=== PATIENT | female | born 1935 | race African-American/Black ===

== ENCOUNTER 2021-10-01 20:35 | Inpatient (IN) | payer MEDICARE, MEDICAID ==
[2021-10-01 21:01] LABS: #Eosinphils 1.3 10x3/uL (0.0-0.5); #Monocytes 0.8 10x3/uL (0.0-1.1); #Neutrophils 8.9 10x3/uL (1.5-8.4); %Basophils 0.3 % (0.0-2.0); %Eosinophils 10.2 % (0.0-6.0); %Lymphocytes 13.5 % (18.0-47.0); Hemoglobin 11.1 g/dL (12.0-15.5); Mean Corpuscular HGB CONC 29.9 g/dL (32.0-36.0); Mean Corpuscular Hemoglobin 27.3 pg (27.0-33.0); Mean Corpuscular Volume 91.2 fl (81.6-98.3); Mean Platelet Volume 11.2 fl (7.4-10.4); Platelet Count 401 10x3/uL (150-450); RBC Distribution Width 15.9 % (11.5-14.5); Red Blood Cell (RBC) Count 4.07 10x6/uL (3.90-5.03); White Blood Cell (WBC) Count 12.9 10x3/uL (3.5-10.5)
[2021-10-01 21:17] LABS: ALT (SGPT) 59 U/L (8-55); AST (SGOT) 35 U/L (5-34); Alkaline Phosphatase 49 U/L (40-110); Anion Gap 18 mmol/L (10-20); BUN (Urea Nitrogen) 44 mg/dL (9.8-20.1); Calc. Creatinine Clearance 0 mL/min (70-130); Calcium 9.4 mg/dL (7.8-10.44); Carbon Dioxide 26 mmol/L (23-31); Chloride 116 mmol/L (98-107); Globulin 3.5 g/dL (2.4-3.5); Glucose 123 mg/dL (83-110); Potassium 4.2 mmol/L (3.5-5.1); Protein, Total 6.5 g/dL (5.8-8.1); Sodium 156 mmol/L (136-145)
[2021-10-01] MEDS ORDERED: Acetaminophen 650 MG Suppository ONE (21:20)
[2021-10-01 21:26] LABS: Hypochromia SLIGHT = 6-15 cells (100X) (0-5/hpf)
[2021-10-01 21:27] LABS: Platelet Morphology Comment Appears Adequate
[2021-10-01 21:36] LABS: Bilirubin Neg (Negative); Blood, Urine 150 (Negative); Clarity Clear (Clear); Glucose, Urine (Dipstick) Normal (Negative); Ketone, Urine Negative (Negative); Leukocyte 25 (Negative); Nitrite Negative (Negative); Protein, Urine (Dipstick) 30 mg/dl (Neg-Trace)
[2021-10-01] MEDS ORDERED: Cefepime 2 GM VIAL ONE (21:36)
[2021-10-01 21:40] LABS: CKMB 0.9 ng/mL (0-6.6)
[2021-10-01 21:45] LABS: WBC/HPF 0-3 HPF (0-3)
[2021-10-01 21:46] LABS: Bacteria/HPF 4+ HPF (None Seen); Mucous/LPF 1+ LPF (<2+)
[2021-10-01] MEDS ORDERED: Calcium Carbonate 500 MG ChewTAB PO PRN (22:39)
[2021-10-01] MEDS ORDERED: Ondansetron PF 4 MG/2 ML Vial IVP PRN (22:39)
[2021-10-01] MEDS ORDERED: Senokot S 8.6-50 MG TAB PO PRN (22:39)
[2021-10-01] MEDS ORDERED: Guaifenesin DM 100-10/5 ML UDCUP PO PRN (22:39)
[2021-10-01] MEDS ORDERED: D5 1/4 NS 1,000 ML IV SCH (22:45)
[2021-10-01] MEDS ORDERED: Vancomycin 1 GM in Premix Bag 1 BAG IVPB PRN (23:00)
[2021-10-01 23:54] LABS: Lactic Acid 4.5 mmol/L (0.5-2.2)
[2021-10-02] MEDS ORDERED: Albumin 25% 100 ML ONE (00:42)
[2021-10-02 02:29] LABS: SARS-CoV-2 NAA Rapid Test Not Detected (NotDetected)
[2021-10-02 05:12] LABS: Hemoglobin 9.9 g/dL (12.0-15.5); Mean Corpuscular HGB CONC 28.9 g/dL (32.0-36.0); Mean Corpuscular Volume 93.4 fl (81.6-98.3); Mean Platelet Volume 11.4 fl (7.4-10.4); Platelet Count 290 10x3/uL (150-450); RBC Distribution Width 15.9 % (11.5-14.5); Red Blood Cell (RBC) Count 3.66 10x6/uL (3.90-5.03); White Blood Cell (WBC) Count 7.9 10x3/uL (3.5-10.5)
[2021-10-02 05:17] LABS: ALT (SGPT) 48 U/L (8-55); AST (SGOT) 29 U/L (5-34); Albumin 3.1 g/dL (3.4-4.8); Alkaline Phosphatase 39 U/L (40-110); Anion Gap 16 mmol/L (10-20); BUN (Urea Nitrogen) 41 mg/dL (9.8-20.1); Bilirubin, Total 1.1 mg/dL (0.2-1.2); Calc. Creatinine Clearance 0 mL/min (70-130); Calcium 8.5 mg/dL (7.8-10.44); Carbon Dioxide 24 mmol/L (23-31); Chloride 117 mmol/L (98-107); Globulin 2.7 g/dL (2.4-3.5); Glucose 81 mg/dL (83-110); Potassium 3.5 mmol/L (3.5-5.1); Protein, Total 5.8 g/dL (5.8-8.1); Sodium 153 mmol/L (136-145)
[2021-10-02 05:43] LABS: CKMB 1.6 ng/mL (0-6.6)
[2021-10-02 06:22] LABS: MDiff Complete? YES
[2021-10-02 06:26] LABS: Band 21 % (5-11); Eosinophils 11 % (0-10); Lymphocytes 16 % (21-51); Metamyelocyte 1 % (0-0); Monocytes 4 % (0-10); Neutrophil 45 % (42-75); Nucleated RBC 1 % (0); Reactive Lymphocytes 2 % (0-10)
[2021-10-02 06:27] LABS: Hypochromia SLIGHT = 6-15 cells (100X) (0-5/hpf); Platelet Morphology Comment Appears Adequate
[2021-10-02 06:32] VITALS: BMI 25.8
[2021-10-02] MEDS ORDERED: VANCOMYCIN 1.25 GM/250 ML BAG 1.25 GM in Premix Bag 1 BAG IVPB SCH (07:00)
[2021-10-02] MEDS: Aspirin 81 mg Enteric Coated Tablet PO SCH (09:26)
[2021-10-02] MEDS: Allopurinol 100 MG TAB PO SCH (09:26)
[2021-10-02] MEDS: Famotidine/PF 20 mg/2ml Vial SLOW IVP SCH (09:26)
[2021-10-02] MEDS: Enoxaparin Sodium 60 MG/0.6 ML SYRINGE SC SCH (09:26)
[2021-10-02] MEDS: Citalopram 20 MG TAB PO SCH (09:26)
[2021-10-02 09:33] LABS: SARS-CoV-2 NAA Rapid Test Not Detected (NotDetected)
[2021-10-02 13:02] LABS: Sodium 153 mmol/L (136-145)
[2021-10-02 19:34] LABS: Legionella Urinary Ag Negative (Negative)
[2021-10-02 19:36] LABS: Strep pneumo Urine Ag NEGATIVE (NEGATIVE)
[2021-10-02] MEDS: Donepezil HCl 5 MG TAB PO SCH (20:45)
[2021-10-02] MEDS: Acetaminophen 650 MG Suppository PR PRN (23:59)
[2021-10-02] MEDS: Cefepime 0.5 GM, Admixture Fee 1 EACH in Sodium Chloride 0.9% 100 ML IVPB SCH (23:59)
[2021-10-03 05:32] LABS: Hemoglobin 9.5 g/dL (12.0-15.5); Mean Corpuscular HGB CONC 30.1 g/dL (32.0-36.0); Mean Corpuscular Hemoglobin 27.7 pg (27.0-33.0); Mean Corpuscular Volume 92.1 fl (81.6-98.3); Mean Platelet Volume 11.1 fl (7.4-10.4); Platelet Count 278 10x3/uL (150-450); RBC Distribution Width 16.4 % (11.5-14.5); Red Blood Cell (RBC) Count 3.43 10x6/uL (3.90-5.03); White Blood Cell (WBC) Count 8.4 10x3/uL (3.5-10.5)
[2021-10-03 05:46] LABS: Lactic Acid 4.8 mmol/L (0.5-2.2)
[2021-10-03 05:47] LABS: Anion Gap 14 mmol/L (10-20); BUN (Urea Nitrogen) 34 mg/dL (9.8-20.1); Calc. Creatinine Clearance 30 mL/min (70-130); Calcium 8.3 mg/dL (7.8-10.44); Carbon Dioxide 22 mmol/L (23-31); Chloride 117 mmol/L (98-107); Glucose 111 mg/dL (83-110); Sodium 150 mmol/L (136-145); Vancomycin, Random 10.3 ug/mL (See Comment)
[2021-10-03 05:48] LABS: Potassium 2.9 mmol/L (3.5-5.1)
[2021-10-03 06:42] LABS: MDiff Complete? YES
[2021-10-03 06:48] LABS: Band 7 % (5-11); Eosinophils 15 % (0-10); Lymphocytes 8 % (21-51); Monocytes 5 % (0-10); Neutrophil 58 % (42-75); Nucleated RBC 1 % (0); Reactive Lymphocytes 6 % (0-10)
[2021-10-03] MEDS ORDERED: Vancomycin HCl 750 MG in Sodium Chloride 0.9% 250 ML 250 ML IVPB SCH (08:00)
[2021-10-03] MEDS: Potassium Chloride 20 MEQ TAB PER TUBE SCH ×2 (08:09→12:43)
[2021-10-03] MEDS: Aspirin 81 mg Enteric Coated Tablet PO SCH (08:09)
[2021-10-03] MEDS: Famotidine/PF 20 mg/2ml Vial SLOW IVP SCH (08:09)
[2021-10-03] MEDS: Allopurinol 100 MG TAB PO SCH (08:09)
[2021-10-03] MEDS: Enoxaparin Sodium 60 MG/0.6 ML SYRINGE SC SCH (08:09)
[2021-10-03] MEDS: Citalopram 20 MG TAB PO SCH (08:09)
[2021-10-03] MEDS ORDERED: Vancomycin 1 GM in Premix Bag 1 BAG IVPB PRN (12:27)
[2021-10-03] MEDS ORDERED: Potassium Chloride 20 MEQ in Premix Bag 1 BAG IVPB SCH (13:00)
[2021-10-03] MEDS ORDERED: Hydrocortisone Sod Succ/PF 100 mg/2 ml Vial IVP SCH (15:00)
[2021-10-03 15:31] LABS: Magnesium 1.9 mg/dL (1.6-2.6)
[2021-10-03] MEDS: D5 1/4 NS 1,000 ML IV SCH (16:57)
[2021-10-03] MEDS: Acetaminophen 650 MG Suppository PR PRN (17:03)
[2021-10-03] MEDS ORDERED: methylPREDNISolone Sod Succ 40 MG VIAL IVP SCH (18:45)
[2021-10-03] MEDS: Donepezil HCl 5 MG TAB PO SCH (21:37)
[2021-10-03] MEDS: Cefepime 0.5 GM, Admixture Fee 1 EACH in Sodium Chloride 0.9% 100 ML IVPB SCH (21:38)
[2021-10-04 05:23] LABS: Vancomycin, Random 14.2 ug/mL (See Comment)
[2021-10-04 05:30] LABS: Anion Gap 15 mmol/L (10-20); BUN (Urea Nitrogen) 31 mg/dL (9.8-20.1); Calc. Creatinine Clearance 31 mL/min (70-130); Calcium 8.5 mg/dL (7.8-10.44); Carbon Dioxide 21 mmol/L (23-31); Chloride 116 mmol/L (98-107); Glucose 192 mg/dL (83-110); Hemoglobin 10.3 g/dL (12.0-15.5); MDiff Complete? YES; Mean Corpuscular HGB CONC 29.9 g/dL (32.0-36.0); Mean Corpuscular Hemoglobin 27.1 pg (27.0-33.0); Mean Corpuscular Volume 90.8 fl (81.6-98.3); Mean Platelet Volume 11.7 fl (7.4-10.4); Platelet Count 252 10x3/uL (150-450); Potassium 3.8 mmol/L (3.5-5.1); RBC Distribution Width 16.8 % (11.5-14.5); Sodium 148 mmol/L (136-145)
[2021-10-04 05:57] LABS: Platelet Morphology Comment Appears Adequate
[2021-10-04 06:14] LABS: Band 12 % (5-11); Eosinophils 5 % (0-10); Lymphocytes 20 % (21-51); Monocytes 5 % (0-10); Neutrophil 53 % (42-75); Reactive Lymphocytes 5 % (0-10)
[2021-10-04 06:16] LABS: Hypochromia SLIGHT = 6-15 cells (100X) (0-5/hpf)
[2021-10-04] MEDS: Citalopram 20 MG TAB PO SCH (11:06)
[2021-10-04] MEDS: Famotidine/PF 20 mg/2ml Vial SLOW IVP SCH (11:06)
[2021-10-04] MEDS: Aspirin 81 mg Enteric Coated Tablet PO SCH (11:06)
[2021-10-04] MEDS: Allopurinol 100 MG TAB PO SCH (11:07)
[2021-10-04] MEDS: Enoxaparin Sodium 60 MG/0.6 ML SYRINGE SC SCH (11:07)
[2021-10-04] MEDS: D5 1/4 NS 1,000 ML IV SCH (20:09)
[2021-10-04] MEDS: Donepezil HCl 5 MG TAB PO SCH (20:41)
[2021-10-04] MEDS: Cefepime 1 GM in Sodium Chloride 0.9% 100 ML IVPB SCH (21:31)
[2021-10-05 05:15] LABS: Hemoglobin 11.1 g/dL (12.0-15.5); Mean Corpuscular HGB CONC 30.1 g/dL (32.0-36.0); Mean Corpuscular Hemoglobin 27.3 pg (27.0-33.0); Mean Corpuscular Volume 90.7 fl (81.6-98.3); Mean Platelet Volume 11.4 fl (7.4-10.4); Platelet Count 288 10x3/uL (150-450); RBC Distribution Width 17.2 % (11.5-14.5); Red Blood Cell (RBC) Count 4.07 10x6/uL (3.90-5.03); White Blood Cell (WBC) Count 8.6 10x3/uL (3.5-10.5)
[2021-10-05 05:31] LABS: Anion Gap 16 mmol/L (10-20); BUN (Urea Nitrogen) 33 mg/dL (9.8-20.1); Calc. Creatinine Clearance 36 mL/min (70-130); Calcium 8.8 mg/dL (7.8-10.44); Carbon Dioxide 18 mmol/L (23-31); Chloride 117 mmol/L (98-107); Glucose 93 mg/dL (83-110); Potassium 4.3 mmol/L (3.5-5.1); Sodium 147 mmol/L (136-145)
[2021-10-05 05:38] LABS: MDiff Complete? YES
[2021-10-05 05:45] LABS: Band 10 % (5-11); Eosinophils 14 % (0-10); Lymphocytes 8 % (21-51); Monocytes 5 % (0-10); Neutrophil 63 % (42-75)
[2021-10-05 05:46] LABS: Platelet Morphology Comment Appears Adequate; RBC Morphology Normal
[2021-10-05] MEDS: Aspirin 81 mg Enteric Coated Tablet PO SCH (10:44)
[2021-10-05] MEDS: Enoxaparin Sodium 60 MG/0.6 ML SYRINGE SC SCH (10:44)
[2021-10-05] MEDS: Citalopram 20 MG TAB PO SCH (10:45)
[2021-10-05] MEDS: Allopurinol 100 MG TAB PO SCH (10:45)
[2021-10-05] MEDS: Acetaminophen 325 MG TAB PO PRN (10:46)
[2021-10-05] MEDS: Famotidine/PF 20 mg/2ml Vial SLOW IVP SCH (10:51)
[2021-10-05] MEDS ORDERED: Morphine 4 MG/ML VIAL SLOW IVP PRN (14:11)
[2021-10-05] MEDS: D5 1/4 NS 1,000 ML IV SCH (14:57)
[2021-10-05] MEDS: Cefepime 1 GM in Sodium Chloride 0.9% 100 ML IVPB SCH (21:44)
[2021-10-05] MEDS: Donepezil HCl 5 MG TAB PO SCH (21:45)
[2021-10-06] MEDS ORDERED: Sodium Chloride 0.9% 500 ML IV SCH (02:00)
[2021-10-06] MEDS: Digoxin 0.5 MG/2 ML AMP SLOW IVP SCH ×2 (02:10→04:32)
[2021-10-06 09:43] LABS: Chloride 119 mmol/L (98-107); Potassium 3.8 mmol/L (3.5-5.1); Sodium 149 mmol/L (136-145)
[2021-10-06 09:51] LABS: Anion Gap 17 mmol/L (10-20); BUN (Urea Nitrogen) 33 mg/dL (9.8-20.1); Calc. Creatinine Clearance 37 mL/min (70-130); Calcium 8.4 mg/dL (7.8-10.44); Carbon Dioxide 16 mmol/L (23-31); Glucose 95 mg/dL (83-110); Magnesium 2.1 mg/dL (1.6-2.6)
[2021-10-06] MEDS: Enoxaparin Sodium 60 MG/0.6 ML SYRINGE SC SCH (10:07)
[2021-10-06] MEDS: Famotidine/PF 20 mg/2ml Vial SLOW IVP SCH (10:11)
[2021-10-06] MEDS: Aspirin 81 mg Enteric Coated Tablet PO SCH (11:35)
[2021-10-06] MEDS: Citalopram 20 MG TAB PO SCH (11:35)
[2021-10-06] MEDS: Allopurinol 100 MG TAB PO SCH (11:35)
[2021-10-06] MEDS: D5 1/4 NS 1,000 ML IV SCH (11:35)
[2021-10-06] MEDS: Cefepime 1 GM in Sodium Chloride 0.9% 100 ML IVPB SCH (21:47)
[2021-10-06] MEDS: Donepezil HCl 5 MG TAB PO SCH (21:47)
[2021-10-07] MEDS: Acetaminophen 325 MG TAB PO PRN (01:39)
[2021-10-07] MEDS: D5 1/4 NS 1,000 ML IV SCH (06:14)
[2021-10-07] MEDS: Citalopram 20 MG TAB PO SCH (08:08)
[2021-10-07] MEDS: Aspirin 81 mg Enteric Coated Tablet PO SCH (08:08)
[2021-10-07] MEDS: Allopurinol 100 MG TAB PO SCH (08:08)
[2021-10-07] MEDS: Famotidine/PF 20 mg/2ml Vial SLOW IVP SCH (08:09)
[2021-10-07] MEDS: Enoxaparin Sodium 60 MG/0.6 ML SYRINGE SC SCH (08:09)
[2021-10-07] MEDS: Acetaminophen 650 MG Suppository PR PRN (13:41)
[2021-10-07 18:07] VITALS: BP 117/55; TEMP 97.2
== END 2021-10-07 18:02 | disposition home or self-care (01) | DRG 871 ==
LOC: CSHERS 20:35 → CSHTELE 10-02 04:11
PROVIDERS: ADMIT Student in an Organized Health Care Education/Training Program; ATTEND Internal Medicine
DX: A41.9 Sepsis, unspecified organism (principal); J18.9 Pneumonia, unspecified organism; I21.A1 Myocardial infarction type 2; E87.2 Acidosis; E44.0 Moderate protein-calorie malnutrition; E87.0 Hyperosmolality and hypernatremia; N17.9 Acute kidney failure, unspecified; I50.32 Chronic diastolic (congestive) heart failure; I13.0 Hypertensive heart and chronic kidney disease with heart failure and stage 1 through stage 4 chronic kidney disease, or unspecified chronic kidney disease; Z66 Do not resuscitate; Z20.822 Contact with and (suspected) exposure to COVID-19; M10.9 Gout, unspecified; R65.20 Severe sepsis without septic shock; N18.9 Chronic kidney disease, unspecified; R62.7 Adult failure to thrive; F32.A Depression, unspecified; K21.9 Gastro-esophageal reflux disease without esophagitis; E86.0 Dehydration; E78.2 Mixed hyperlipidemia; I77.9 Disorder of arteries and arterioles, unspecified; F03.90 Unspecified dementia, unspecified severity, without behavioral disturbance, psychotic disturbance, mood disturbance, and anxiety; L89.152 Pressure ulcer of sacral region, stage 2; E87.6 Hypokalemia; Z68.25 Body mass index [BMI] 25.0-25.9, adult; Z87.891 Personal history of nicotine dependence
CPT/HCPCS: 0240U; 36415; 36416; 51701; 71045; 80048; 80053; 80202; 81003; 81015; 82553; 83605; 83735; 83880; 84145; 84484; 85025; 87040; 87077; 87086; 87186; 87449; 87899; 93005; 93010; 93306; 96365; 96375; J0692; J1160; J1650; J1720; J1956; J2270; J2920; J3370; J3475; J3480; J3490; J7030; J7042; J7050; P9047; S0028; U0002